=== PATIENT | male | born 1965 | race Caucasian/White ===

== ENCOUNTER 2020-05-06 14:08 | Outpatient (REF) | payer BC, SELFPAY ==
[2020-05-06 14:30] LABS: Hematocrit 49.1 % (42-52); Hemoglobin 16.7 g/dl (14.0-18.0); Mean Corpuscular Hemoglobin 30.5 pg (27.0-33.0); Mean Corpuscular Volume 89.8 fL (80-98); Mean Platelet Volume 9.1 fL (9.4-12.4); Platelet Count 204 X10*3/uL (160-400); Red Blood Count 5.47 X10*6/uL (4.60-5.80); Red Cell Distribution Width 12.5 % (11.0-16.0); White Blood Count 7.2 X10*3/uL (4.8-10.8)
[2020-05-06 14:57] LABS: Iron 68 mcg/dL (45-160); Percent Iron Saturation 22 % (15-50); Total Iron Binding Capacity 309 mcg/dL (228-428); Unsaturated Iron Binding 241 ug/dL
[2020-05-06 15:20] LABS: Ferritin 20 ng/mL (20-250)
== END 2020-05-06 14:09 | disposition home or self-care (01) ==
LOC: HO.BBR 14:08
PROVIDERS: Visit Provider Internal Medicine Gastroenterology
DX: E83.110 Hereditary hemochromatosis (principal)
CPT/HCPCS: 36415; 82728; 83540; 85027

== ENCOUNTER 2020-06-30 15:34 | Outpatient (REF) | payer BC, SELFPAY | END 2020-06-30 15:35 | disposition home or self-care (01) | LOC: HO.BBR 15:34 | PROVIDERS: Visit Provider Internal Medicine Gastroenterology | DX: Z13.89 Encounter for screening for other disorder (principal) ==

== ENCOUNTER 2020-08-26 15:38 | Outpatient (REF) | payer BC, SELFPAY ==
[2020-08-26 15:53] LABS: Hematocrit 48.6 % (42-52); Hemoglobin 16.3 g/dl (14.0-18.0); Mean Corpuscular HGB Conc 33.5 g/dl (31.0-36.0); Mean Corpuscular Hemoglobin 28.5 pg (27.0-33.0); Mean Platelet Volume 8.8 fL (9.4-12.4); Platelet Count 249 X10*3/uL (160-400); Red Blood Count 5.72 X10*6/uL (4.60-5.80); White Blood Count 6.6 X10*3/uL (4.8-10.8)
[2020-08-26 16:23] LABS: Iron 60 mcg/dL (45-160); Percent Iron Saturation 20 % (15-50); Total Iron Binding Capacity 297 mcg/dL (228-428); Unsaturated Iron Binding 237 ug/dL
[2020-08-26 16:46] LABS: Ferritin 28 ng/mL (20-250)
== END 2020-08-26 15:39 | disposition home or self-care (01) ==
LOC: HO.BBR 15:38
PROVIDERS: Visit Provider Internal Medicine Gastroenterology
DX: E83.110 Hereditary hemochromatosis (principal)
CPT/HCPCS: 36415; 82728; 83540; 85027

== ENCOUNTER 2020-11-11 08:11 | Outpatient (REF) | payer BC, SELFPAY ==
[2020-11-11 08:26] LABS: Hemoglobin 16.3 g/dl (14.0-18.0); Mean Corpuscular Hemoglobin 28.8 pg (27.0-33.0); Mean Platelet Volume 8.7 fL (9.4-12.4); Platelet Count 175 X10*3/uL (160-400); Red Blood Count 5.65 X10*6/uL (4.60-5.80); Red Cell Distribution Width 13.7 % (11.0-16.0); White Blood Count 5.6 X10*3/uL (4.8-10.8)
[2020-11-11 09:54] LABS: Iron 76 mcg/dL (45-160); Percent Iron Saturation 26 % (15-50); Total Iron Binding Capacity 290 mcg/dL (228-428); Unsaturated Iron Binding 214 ug/dL
[2020-11-11 10:17] LABS: Ferritin 17 ng/mL (20-250)
== END 2020-11-11 08:12 | disposition home or self-care (01) ==
LOC: HO.BBR 08:11
PROVIDERS: Visit Provider Internal Medicine Gastroenterology
DX: E83.110 Hereditary hemochromatosis (principal)
CPT/HCPCS: 36415; 82728; 83540; 85027

== ENCOUNTER 2021-01-19 13:09 | Outpatient (REF) | payer BC, SELFPAY | END 2021-01-19 13:10 | disposition home or self-care (01) | LOC: HO.BBR 13:09 | PROVIDERS: Visit Provider Internal Medicine Gastroenterology | DX: Z13.89 Encounter for screening for other disorder (principal) ==

== ENCOUNTER 2021-03-16 15:32 | Outpatient (REF) | payer OTHER, SELFPAY ==
[2021-03-16 15:46] LABS: MANUAL DIFF FLAG NO
[2021-03-16 15:48] LABS: Basophils Absolute Auto 0.1 X10*3/uL (0.0-0.2); Basophils Percent Auto 0.8 % (0-2); Eosinophils Absolute Auto 0.4 X10*3/uL (0.0-0.4); Eosinophils Percent Auto 6.2 % (0-4); Hematocrit 47.3 % (42.0-52.0); Hemoglobin 16.3 g/dl (14.0-18.0); Imm Gran Abs Auto 0.04 X10*3/uL (0.00-0.03); Imm Gran Pct Auto 0.6 % (0.0-0.4); Lymphocytes Absolute Auto 1.2 X10*3/uL (1.2-4.9); Lymphocytes Percent Auto 18.8 % (20-40); Mean Corpuscular HGB Conc 34.5 g/dl (31.0-36.0); Mean Corpuscular Hemoglobin 29.4 pg (27.0-33.0); Mean Corpuscular Volume 85.2 fL (80.0-98.0); Mean Platelet Volume 8.7 fL (9.4-12.4); Monocytes Absolute Auto 0.4 X10*3/uL (0.1-1.2); Monocytes Percent Auto 6.8 % (2-11); Neutrophils Absolute Auto 4.1 x10*3/uL (2.0-8.3); Neutrophils Percent Auto 66.8 % (45-73); Platelet Count 172 X10*3/uL (160-400); Red Blood Count 5.55 X10*6/uL (4.60-5.80); Red Cell Distribution Width 13.8 % (11.0-16.0); White Blood Count 6.2 X10*3/uL (4.8-10.8)
[2021-03-16 16:38] LABS: Iron 204 mcg/dL (45-160); Percent Iron Saturation 73 % (15-50); Total Iron Binding Capacity 279 mcg/dL (228-428); Unsaturated Iron Binding 75 ug/dL
[2021-03-16 16:58] LABS: Ferritin 33 ng/mL (20-250)
== END 2021-03-16 15:33 | disposition home or self-care (01) ==
LOC: HO.BBR 15:32
PROVIDERS: Visit Provider Internal Medicine Gastroenterology
DX: E83.110 Hereditary hemochromatosis (principal)
CPT/HCPCS: 36415; 82728; 83540; 85025

== ENCOUNTER 2021-08-30 08:10 | Outpatient (REF) | payer OTHER, SELFPAY | END 2021-08-30 08:11 | disposition home or self-care (01) | LOC: HO.BBR 08:10 | PROVIDERS: Visit Provider Internal Medicine Gastroenterology | DX: Z13.89 Encounter for screening for other disorder (principal) ==

== ENCOUNTER 2021-10-25 08:04 | Outpatient (REF) | payer OTHER, SELFPAY ==
[2021-10-25 08:21] LABS: MANUAL DIFF FLAG NO
[2021-10-25 08:25] LABS: Basophils Absolute Auto 0.1 X10*3/uL (0.0-0.2); Basophils Percent Auto 1.1 % (0-2); Eosinophils Absolute Auto 0.9 X10*3/uL (0.0-0.4); Eosinophils Percent Auto 14.9 % (0-4); Hematocrit 44.7 % (42.0-52.0); Hemoglobin 15.8 g/dl (14.0-18.0); Imm Gran Abs Auto 0.03 X10*3/uL (0.00-0.03); Imm Gran Pct Auto 0.5 % (0.0-0.4); Lymphocytes Percent Auto 18.1 % (20-40); Mean Corpuscular HGB Conc 35.3 g/dl (31.0-36.0); Mean Corpuscular Hemoglobin 31.9 pg (27.0-33.0); Mean Corpuscular Volume 90.3 fL (80.0-98.0); Mean Platelet Volume 8.9 fL (9.4-12.4); Monocytes Absolute Auto 0.4 X10*3/uL (0.1-1.2); Monocytes Percent Auto 7.2 % (2-11); Neutrophils Absolute Auto 3.3 x10*3/uL (2.0-8.3); Neutrophils Percent Auto 58.2 % (45-73); Platelet Count 158 X10*3/uL (160-400); Red Blood Count 4.95 X10*6/uL (4.60-5.80); Red Cell Distribution Width 12.2 % (11.0-16.0); White Blood Count 5.7 X10*3/uL (4.8-10.8)
[2021-10-25 09:47] LABS: Iron 110 mcg/dL (45-160); Percent Iron Saturation 42 % (15-50); Total Iron Binding Capacity 259 mcg/dL (228-428); Unsaturated Iron Binding 149 ug/dL
[2021-10-25 09:59] LABS: Ferritin 49 ng/mL (20-250)
== END 2021-10-25 08:05 | disposition home or self-care (01) ==
LOC: HO.BBR 08:04
PROVIDERS: Visit Provider Internal Medicine Gastroenterology
DX: E83.119 Hemochromatosis, unspecified (principal)
CPT/HCPCS: 36415; 82728; 83540; 85025

== ENCOUNTER 2021-12-20 08:06 | Outpatient (REF) | payer OTHER, SELFPAY ==
[2021-12-20 08:19] LABS: MANUAL DIFF FLAG NO
[2021-12-20 08:22] LABS: Basophils Absolute Auto 0.1 X10*3/uL (0.0-0.2); Basophils Percent Auto 1.2 % (0-2); Eosinophils Absolute Auto 1.2 X10*3/uL (0.0-0.4); Eosinophils Percent Auto 18.6 % (0-4); Hematocrit 45.8 % (42.0-52.0); Hemoglobin 16.3 g/dl (14.0-18.0); Imm Gran Abs Auto 0.03 X10*3/uL (0.00-0.03); Imm Gran Pct Auto 0.4 % (0.0-0.4); Lymphocytes Percent Auto 14.8 % (20-40); Mean Corpuscular HGB Conc 35.6 g/dl (31.0-36.0); Mean Corpuscular Hemoglobin 31.5 pg (27.0-33.0); Mean Corpuscular Volume 88.4 fL (80.0-98.0); Mean Platelet Volume 9.2 fL (9.4-12.4); Monocytes Absolute Auto 0.4 X10*3/uL (0.1-1.2); Monocytes Percent Auto 6.3 % (2-11); Neutrophils Absolute Auto 3.9 x10*3/uL (2.0-8.3); Neutrophils Percent Auto 58.7 % (45-73); Platelet Count 157 X10*3/uL (160-400); Red Blood Count 5.18 X10*6/uL (4.60-5.80); Red Cell Distribution Width 12.1 % (11.0-16.0); White Blood Count 6.7 X10*3/uL (4.8-10.8)
[2021-12-20 09:09] LABS: Iron 104 mcg/dL (45-160); Percent Iron Saturation 39 % (15-50); Total Iron Binding Capacity 267 mcg/dL (228-428); Unsaturated Iron Binding 163 ug/dL
[2021-12-20 09:34] LABS: Ferritin 50 ng/mL (20-250)
== END 2021-12-20 08:07 | disposition home or self-care (01) ==
LOC: HO.BBR 08:06
PROVIDERS: Visit Provider Internal Medicine Gastroenterology
DX: E83.110 Hereditary hemochromatosis (principal)
CPT/HCPCS: 36415; 82728; 83540; 85025

== ENCOUNTER 2022-02-14 08:08 | Outpatient (REF) | payer OTHER, SELFPAY ==
[2022-02-14 08:38] LABS: Basophils Absolute Auto 0.1 X10*3/uL (0.0-0.2); Basophils Percent Auto 0.8 % (0-2); Eosinophils Percent Auto 34.1 % (0-4); Hemoglobin 15.1 g/dl (14.0-18.0); Imm Gran Abs Auto 0.01 X10*3/uL (0.00-0.03); Imm Gran Pct Auto 0.2 % (0.0-0.4); Lymphocytes Absolute Auto 0.9 X10*3/uL (1.2-4.9); Lymphocytes Percent Auto 15.6 % (20-40); MANUAL DIFF FLAG SCAN; Mean Corpuscular HGB Conc 35.1 g/dl (31.0-36.0); Mean Corpuscular Hemoglobin 30.8 pg (27.0-33.0); Mean Corpuscular Volume 87.8 fL (80.0-98.0); Mean Platelet Volume 8.8 fL (9.4-12.4); Monocytes Absolute Auto 0.4 X10*3/uL (0.1-1.2); Monocytes Percent Auto 6.5 % (2-11); Neutrophils Absolute Auto 2.6 x10*3/uL (2.0-8.3); Neutrophils Percent Auto 42.8 % (45-73); Platelet Count 135 X10*3/uL (160-400); SCAN SMEAR FLAG 1
[2022-02-14 09:11] LABS: SLIDE REVIEW VERIFIED
[2022-02-14 09:44] LABS: Ferritin 50 ng/mL (20-250); Iron 72 mcg/dL (45-160); Percent Iron Saturation 32 % (15-50); Total Iron Binding Capacity 225 mcg/dL (228-428); Unsaturated Iron Binding 153 ug/dL
== END 2022-02-14 08:09 | disposition home or self-care (01) ==
LOC: HO.BBR 08:08
PROVIDERS: Visit Provider Internal Medicine Gastroenterology
DX: E83.110 Hereditary hemochromatosis (principal)
CPT/HCPCS: 36415; 82728; 83540; 85025

== ENCOUNTER 2022-04-17 08:02 | Outpatient (REF) | payer OTHER, SELFPAY | END 2022-04-17 08:03 | disposition home or self-care (01) | LOC: HO.BBR 08:02 | PROVIDERS: Visit Provider Internal Medicine Gastroenterology | DX: Z13.89 Encounter for screening for other disorder (principal) ==

== ENCOUNTER 2022-07-06 08:03 | Outpatient (REF) | payer OTHER, SELFPAY ==
[2022-07-06 08:13] LABS: MANUAL DIFF FLAG NO
[2022-07-06 08:15] LABS: Basophils Percent Auto 0.6 % (0-2); Eosinophils Absolute Auto 0.5 X10*3/uL (0.0-0.4); Eosinophils Percent Auto 8.1 % (0-4); Hematocrit 44.5 % (42.0-52.0); Hemoglobin 15.5 g/dl (14.0-18.0); Imm Gran Abs Auto 0.03 X10*3/uL (0.00-0.03); Imm Gran Pct Auto 0.5 % (0.0-0.4); Lymphocytes Absolute Auto 0.7 X10*3/uL (1.2-4.9); Lymphocytes Percent Auto 10.2 % (20-40); Mean Corpuscular HGB Conc 34.8 g/dl (31.0-36.0); Mean Corpuscular Hemoglobin 30.2 pg (27.0-33.0); Mean Corpuscular Volume 86.7 fL (80.0-98.0); Mean Platelet Volume 8.4 fL (9.4-12.4); Monocytes Absolute Auto 0.5 X10*3/uL (0.1-1.2); Neutrophils Absolute Auto 4.8 x10*3/uL (2.0-8.3); Neutrophils Percent Auto 73.6 % (45-73); Platelet Count 154 X10*3/uL (160-400); Red Blood Count 5.13 X10*6/uL (4.60-5.80); Red Cell Distribution Width 12.7 % (11.0-16.0); White Blood Count 6.6 X10*3/uL (4.8-10.8)
[2022-07-06 11:01] LABS: Iron 87 mcg/dL (45-160); Percent Iron Saturation 36 % (15-50); Total Iron Binding Capacity 244 mcg/dL (228-428); Unsaturated Iron Binding 157 ug/dL
[2022-07-06 11:22] LABS: Ferritin 61 ng/mL (20-250)
== END 2022-07-06 08:04 | disposition home or self-care (01) ==
LOC: HO.BBR 08:03
PROVIDERS: Visit Provider Internal Medicine Gastroenterology
DX: E83.110 Hereditary hemochromatosis (principal)
CPT/HCPCS: 36415; 82728; 83540; 85025

== ENCOUNTER 2022-11-30 09:11 | Outpatient (REF) | payer OTHER, SELFPAY ==
[2022-11-30 09:20] LABS: MANUAL DIFF FLAG NO
[2022-11-30 09:23] LABS: Basophils Absolute Auto 0.1 X10*3/uL (0.0-0.2); Basophils Percent Auto 0.7 % (0-2); Eosinophils Absolute Auto 0.4 X10*3/uL (0.0-0.4); Eosinophils Percent Auto 5.9 % (0-4); Hematocrit 47.5 % (42.0-52.0); Hemoglobin 16.7 g/dl (14.0-18.0); Imm Gran Abs Auto 0.04 X10*3/uL (0.00-0.03); Imm Gran Pct Auto 0.6 % (0.0-0.4); Lymphocytes Absolute Auto 1.3 X10*3/uL (1.2-4.9); Lymphocytes Percent Auto 18.7 % (20-40); Mean Corpuscular HGB Conc 35.2 g/dl (31.0-36.0); Mean Corpuscular Hemoglobin 31.3 pg (27.0-33.0); Mean Corpuscular Volume 89.1 fL (80.0-98.0); Mean Platelet Volume 8.5 fL (9.4-12.4); Monocytes Absolute Auto 0.6 X10*3/uL (0.1-1.2); Neutrophils Absolute Auto 4.6 x10*3/uL (2.0-8.3); Neutrophils Percent Auto 66.1 % (45-73); Platelet Count 164 X10*3/uL (160-400); Red Blood Count 5.33 X10*6/uL (4.60-5.80); Red Cell Distribution Width 13.3 % (11.0-16.0); White Blood Count 6.9 X10*3/uL (4.8-10.8)
[2022-11-30 11:11] LABS: Iron 116 mcg/dL (45-160); Percent Iron Saturation 44 % (15-50); Total Iron Binding Capacity 261 mcg/dL (228-428); Unsaturated Iron Binding 145 ug/dL
[2022-11-30 11:30] LABS: Ferritin 51 ng/mL (20-250)
== END 2022-11-30 09:12 | disposition home or self-care (01) ==
LOC: HO.BBR 09:11
PROVIDERS: Visit Provider Internal Medicine Gastroenterology
DX: E83.110 Hereditary hemochromatosis (principal)
CPT/HCPCS: 36415; 82728; 83540; 85025

== ENCOUNTER 2023-03-20 14:32 | Outpatient (REF) | payer OTHER, SELFPAY | END 2023-03-20 14:33 | disposition home or self-care (01) | LOC: HO.BBR 14:32 | PROVIDERS: Visit Provider Internal Medicine Gastroenterology | DX: Z13.89 Encounter for screening for other disorder (principal) ==